=== PATIENT | female | born 1975 | race Caucasian/White ===

== ENCOUNTER 2017-10-11 09:08 | Outpatient (CLI) | payer OTHER ==
[2017-10-11] MEDS ORDERED: ISOVUE-370 76%-LOCM 1 ML ONE (11:17)
== END 2017-10-11 09:09 | disposition home or self-care (01) ==
LOC: BICCT 09:08
PROVIDERS: ATTEND Urology
DX: R31.29 Other microscopic hematuria (principal); Z87.440 Personal history of urinary (tract) infections; Z72.0 Tobacco use; Z90.49 Acquired absence of other specified parts of digestive tract; Z90.710 Acquired absence of both cervix and uterus
CPT/HCPCS: 74178